=== PATIENT | male | born 1975 | race African-American/Black ===

== ENCOUNTER 2022-01-17 18:22 | Emergency (ER) | payer MEDICAID, OTHER ==
[~2022-01-17] VITALS: Ht 170.2 cm; Wt 79.6 kg
[2022-01-17 18:32] VITALS: BP 125/89
== END 2022-01-17 21:27 | disposition left against medical advice (07) ==
LOC: ER 18:28
DX: S16.1XXA Strain of muscle, fascia and tendon at neck level, initial encounter (principal); M54.50 Low back pain, unspecified; F12.10 Cannabis abuse, uncomplicated; V43.52XA Car driver injured in collision with other type car in traffic accident, initial encounter; Y93.89 Activity, other specified; Y92.488 Other paved roadways as the place of occurrence of the external cause; Y99.8 Other external cause status
CPT/HCPCS: 72040; 72100